=== PATIENT | female | born 1970 | race Caucasian/White ===

== ENCOUNTER 2022-08-16 11:35 | Emergency (ER) | payer SELFPAY ==
[2022-08-16 12:12] LABS: Urine Blood 2+ (Negative); Urine Glucose Negative (Negative); Urine Protein 2+ (Negative); Urine pH 5.5 (5.0-7.0)
--- NOTE | 2022-08-16 12:24 | EDPHYS ---
Physician Documentation [facility] Name: Philomena Em Age: 52 yrs Sex: Female : 1970 Arrival Date: 08/16/2022 Time: 11:37 Bed 17 Private MD: ED Physician Bethel Smith HPI: 08/16 11:59 This 52 yrs old Female presents to ER via Unassigned with complaints of Urinary en Problem, Pelvic Pain. 11:59 52-year-old female with no known medical history presents to ED with urinary hesitancy, en frequency, dysuria for 3 days. She reports subjective fever without chills or flank pain. No nausea, vomiting. No relief with [id number] Azo. [employer]: 12:01 LMP N/A - Irregular menses vg1 Historical: - Allergies: 12:01 PENICILLINS; vg1 - Home Meds: 12:01 None [Active]; vg1 - PMHx: 12:01 None; vg1 - PSHx: 12:01 Tubal Ligation; vg1 - Immunization history:: Client reports having NOT received the Covid vaccine. - Social history:: Smoking status: Patient reports the use of cigarette tobacco products, denies chronic smoking, but will smoke occasionally. ROS: 11:59 Constitutional: Subjective fever and chills : + Dysuria, hesitancy, frequency en without flank pain 11:59 All other systems are negative. en Exam: 11:59 Constitutional: This is a well developed, well nourished patient who is awake, alert, en and in no acute distress. 11:59 Cardiovascular: Exam negative for gallop, murmur, rub, Rate: normal, Heart sounds: normal. 11:59 Respiratory: Breath sounds: are clear throughout. 11:59 Abdomen/GI: Exam negative for acute changes, guarding, tenderness. 11:59 Back: CVA tenderness, is absent. Vital Signs: 11:58 BP 145 / 79; Pulse 87; Resp 16; Temp 99.4(O); Pulse Ox 100% on R/A; Weight 104.33 kg; vg1 Height 5 ft. 8 in. (172.72 cm); Pain 5/10; 11:58 Body Mass Index 34.97 (104.33 kg, 172.72 cm) vg1 MDM: 11:59 Differential diagnosis: UTI versus pyelonephritis. Data reviewed: vital signs, nurses en notes, lab test result(s), urinalysis. 12:05 Patient medically screened. en 12:25 Data reviewed: lab test result(s), urinalysis, +bacteruria and hematuria. en 08/16 11:59 Order name: Urine Dipstick-Ancillary (obtain specimen); Complete Time: 12:12 en 08/16 12:13 Order name: Urine Dipstick-Ancillary; Complete Time: 12:26 EDMS 08/16 12:23 Order name: Urine --Ancillary (enter results) eb Administered Medications: 12:20 Not Given (Physician Discretion): Omnicef (cefdinir) 300 mg PO once ll1 12:27 Drug: Bactrim (trimethoprim-sulfamethoxazole) (160 mg-800 mg (DS) 1 tablet Route: PO; ll1 12:34 Follow up: Response: No adverse reaction kr3 Disposition: 13:59 Co-signature as Attending Physician, Bethel Smith MD I agree with the assessment and kdr plan of care. Disposition Summary: 08/16/22 12:24 Discharge Ordered Location: Home en Problem: new en Symptoms: are unchanged en Condition: Stable en Diagnosis - UTI/ Urinary tract infection, site not specified en Followup: en - With: Lauro Kovacs MD - When: As needed - Reason: Discharge Instructions: - Discharge Summary Sheet en - Urinary Tract Infection, Adult en Forms: - Medication Reconciliation Form en - Thank You Letter en - Antibiotic Education en - Prescription Opioid Use en Prescriptions: - Bactrim DS 800-160 mg Oral Tablet - take 1 tablet by ORAL route every 12 hours for 10 days; 20 tablet; Refills: 0, en Product Selection Permitted Signatures: Dispatcher [employer] [facility] Bethel Smith MD MD kdr Mayda Pritchett RN RN vg1 Tu Davila RN RN ll1 Amelia De La Torre PA PA en Rocio Block RN kr3
--- NOTE | 2022-08-16 12:24 | ER ---
Nurse's Notes [facility] Name: Philomena Em Age: 52 yrs Sex: Female : 1970 Arrival Date: 08/16/2022 Time: 11:37 Bed 17 Private MD: Diagnosis: UTI/ Urinary tract infection, site not specified Presentation: 08/16 11:58 Chief complaint: Patient states: Pain before and after urination since Wednesday08/14/22 vg1 with urgency and burning. Denies blood in urine. Took 1 g of Tylenol about three hours ago for fever. Coronavirus screen: Vaccine status: Patient reports being unvaccinated. Client denies travel out of the [place] in the last 14 days. Ebola Screen: Patient negative for fever greater than or equal to 101.5 degrees Fahrenheit, and additional compatible Ebola Virus Disease symptoms Patient denies exposure to infectious person. Initial Sepsis Screen: Does the patient meet any 2 criteria? No. Patient's initial sepsis screen is negative. Does the patient have a suspected source of infection? No. Patient's initial sepsis screen is negative. Risk Assessment: Do you want to hurt yourself or someone else? Patient reports no desire to harm self or others. Onset of symptoms was August 14, 2022. 11:58 Method Of Arrival: Ambulatory vg1 11:58 Acuity: NESSA 3 vg1 Triage Assessment: 12:01 General: Appears uncomfortable, Behavior is calm, cooperative. Pain: Complains of pain vg1 in groin Pain currently is 5 out of 10 on a pain scale. Pain began 2-3 days ago. Neuro: Level of Consciousness is awake, alert, obeys commands, Oriented to person, place, time, situation. Cardiovascular: Patient's skin is warm and dry. : Reports burning with urination, urgency. [employer] RO[employer]ED HAIR: 12:01 LMP N/A - Irregular menses vg1 Historical: - Allergies: 12:01 PENICILLINS; vg1 - Home Meds: 12:01 None [Active]; vg1 - PMHx: 12:01 None; vg1 - PSHx: 12:01 Tubal Ligation; vg1 - Immunization history:: Client reports having NOT received the Covid vaccine. - Social history:: Smoking status: Patient reports the use of cigarette tobacco products, denies chronic smoking, but will smoke occasionally. Screenin:32 [facility] ED Fall Risk Assessment (Adult) History of falling in the last 3 months, kr3 including since admission No falls in past 3 months (0 pts) Confusion or Disorientation No (0 pts) Intoxicated or Sedated No (0 pts) Impaired Gait No (0 pts) Mobility Assist Device Used No (0 pt) Altered Elimination No (0 pt) Score/Fall Risk Level 0 - 2 = Low Risk Oriented to surroundings, Maintained a safe environment, Educated pt \T\ family on fall prevention, incl call for assistance when getting out of bed, Assessed \T\ reinforced patient's understanding of fall precautions, Hourly rounding (assess needs \T\ fall precautionary measures) done. Abuse screen: Denies threats or abuse. Nutritional screening: No deficits noted. Tuberculosis screening: No symptoms or risk factors identified. Vital Signs: 11:58 BP 145 / 79; Pulse 87; Resp 16; Temp 99.4(O); Pulse Ox 100% on R/A; Weight 104.33 kg; vg1 Height 5 ft. 8 in. (172.72 cm); Pain 5/10; 11:58 Body Mass Index 34.97 (104.33 kg, 172.72 cm) vg1 ED Course: 11:37 Patient arrived in ED. am2 11:38 Amelia De La Torre PA is PHCP. en 11:38 Bethel Smith MD is Attending Physician. en 12:01 Triage completed. vg1 12:01 Arm band placed on. vg1 12:05 Bed in low position. Call light in reach. Side rails up X 1. kr3 12:24 Lauro Kovacs MD is Referral Physician. en 12:33 No provider procedures requiring assistance completed. Patient did not have IV access kr3 during this emergency room visit. Administered Medications: 12:20 Not Given (Physician Discretion): Omnicef (cefdinir) 300 mg PO once ll1 12:27 Drug: Bactrim (trimethoprim-sulfamethoxazole) (160 mg-800 mg (DS) 1 tablet Route: PO; ll1 12:34 Follow up: Response: No adverse reaction kr3 Medication: 12:33 VIS not applicable for this client. kr3 Outcome: 12:24 Discharge ordered by . en 12:32 Patient left the ED. kr3 12:33 Discharged to home kr3 12:33 Condition: stable 12:33 Discharge instructions given to patient, Instructed on discharge instructions, follow up and referral plans. medication usage, Demonstrated understanding of instructions, follow-up care, medications, Prescriptions given X 1. Signatures: Crystal Hameed Victoria, RN RN vg1 Tu Davila RN RN ll1 Amelia De La Torre PA PA en Reid, Kelley RN RN kr3
[2022-08-16] MEDS ORDERED: SMZ./TMP. 800/160 MG TABLET ONE (12:29)
[2022-08-16 13:00] VITALS: BP 145/79; TEMP 99.4; O2SAT 100
== END 2022-08-16 12:32 | disposition home or self-care (01) ==
LOC: ER 11:35
DX: N39.0 Urinary tract infection, site not specified (principal)
CPT/HCPCS: 81003; 99283

== ENCOUNTER 2022-10-05 07:54 | Inpatient (IN) | payer SELFPAY ==
--- OUTSIDE RECORDS SUMMARY | 2022-10-05 07:59 | XMS REPORT | Continuity of Care Document ---
:1970 Author Organization [facility] t Address [address] [place] [address] Care Team Providers Name Role Phone Yeison Perdomo Attending Clinician Lisa Anne MD Attending Clinician LISA ANNE Attending Clinician Unavailable Payers Payer Name Policy Type Policy Number Effective Date Expiration Date S ource Problems Condition Condition Condition Status Onset Resolution Last Treating Co mments Source Name Details Category Date Date Treatment Clinician Date No known No known Disease Unive rs active active ity of problems problems [facility] Allergies, Adverse Reactions, Alerts Allergy Allergy Status Severity Reaction(s) Onset Inactive Treating Comm ents Source Name Type Date Date Clinician Penicill Propensi Active Swelling 2020-0 Univ ers ins ty to 8-14 ity of adverse 00:00: [place] reaction Medical s Branch PENICILL Drug Active Swelling 2020-0 Univer s INS Class 8-14 ity of 00:00: [address] Penicill DA Active MO 2020-0 [facility] ins Clear 00:00: [place] [facility] Penicill DA Active MO rash 2020-0 [facility] ins Clear 00:00: [place] 00 [facility] penicill DA Active U 2006-0 [facility] in G 06-24 Clear 00:00: [place] [facility] penicill DA Active U 2006-0 [facility] in G 06-24 Clear 00:00: [place] [facility] No Known DA Active U 2006- [facility] Contrast 06-23 Clear Allergie 00:00: [place] [facility] No Known DA Active U 2006- [facility] Food - Clear Allergie 00:00: [place] [facility] No Known DA Active U 2006- [facility] Other - Clear Allergie 00:00: [place] [facility] PENICILL DA Active U HIVES 2006- [facility] IN 06-23 Clear 00:00: [place] [facility] Social History Social Habit Start Date Stop Date Quantity Comments Source Sex Assigned At Uni versity [facility] Exposure to SARS-CoV-2 Not sure Un iversity [facility] (event) [facility] Smoking Status Start Date Stop Date Source Unknown if ever smoked Universit y [facility] Medications Ordered Filled Start Stop Current Ordering Indication Dosage Frequency Signature Comments Components Source Medication Medication Date Date Medication? Clinician (SIG) Name Name ondansetron 2019-06- No 4mg 4 mg, Slow Univers (ZOFRAN 0-25 10-25 IV Push, ity of (PF)) 18:45: 18:14 ONCE, 1 [place] injection 4 00 :00 dose, [facility] ical mg 04/07/20 Branch at 1345, GALLO morpHINE 2019-06- No 4mg 4 mg, Slow Un franklin injection 4 0-25 10-25 IV Push, ity of mg 18:45: 18:14 ONCE, 1 [place] 00 :00 dose, [facility] 04/07/20 Branch at 1345, STAT clindamycin 2019-06- No 900mg 900 mg, IV Univers in 5 % 0-25 10-25 Piggyback, ity of dextrose 18:45: 18:43 ONCE, 1 [place] (CLEOCIN) 00 :00 dose, [facility] Medic al 900 mg/50 04/07/20 Branch mL IV at 1345, piggyback 50 RTU 900 mg mL
Reas on for Anti-Infec tive: Documented Infection< br>Documen tk Infection Site: Skin / Soft Tissue
Duration of Therapy: 7 days
Re stricted use approved by: ED PROVIDER<b r>Indicati on for Clindamyci n use: abscess NaCl 0.9% 2019-06 2020- No 1000mL at 999 Uni vers (NS) bolus 0-25 10-25 mL/hr, ity of infusion 18:00: 19:17 1,000 mL, Reji as 1,000 mL 00 :00 IV Medical Infusion, Branch ONCE, 1 dose, 04/07/20 at 1300, GALLO mupirocin 2 2019-06 Yes [id number] Apply to Univers % ointment 0-25 [id number] area(s) 3 it y of 00:00: (three) [place] 00 times Medical daily. Branch traMADoL 50 2019-06 Yes [id number] 50mg Take 1 Univ ers mg tablet 0-25 tablet by ity o f 00:00: mouth [place] 00 every 6 Medical (six) Branch hours as needed for Pain (scale 7-10). Indication s: acute pain clindamycin 2019-06- No [id number] 300mg Take 1 Univers 300 mg 0-25 04-15 [id number] capsule by ity of capsule 00:00: 05:59 mouth 3 [place] 00 :00 (three) Medical times [place] daily for 7 days. clindamycin 2019-06- No [id number] 150mg Take 1 Univers 150 mg 0-25 04-15 [id number] capsule by ity of capsule 00:00: 05:59 mouth 3 [place] 00 :00 (three) Medical times [place] daily for 7 days. ondansetron 2019- No 4mg 4 mg, Slow Univers (ZOFRAN 01-26-15 IV Push, ity of (PF)) 06:30: 05:31 ONCE, 1 [place] injection 4 00 :00 dose, Sat Med ical mg 01/27/20 at Branch 0130, GALLO morpHINE 2019- No 4mg 4 mg, Slow Un franklin injection 4 01-26-15 IV Push, ity of mg 06:30: 05:31 ONCE, 1 [place] 00 :00 dose, Sat Medical 01/27/20 at Branch 0130, STAT iohexol 2019-2019- No 120mL 120 mL, Unive rs (OMNIPAQUE 01-26-15 Intravenou it y of 350 06:15: 06:09 s, ONCE, 1 [place] BULK-150 00 :00 dose, Sat Medica l mL) 01/27/20 at [place] injection 0115, 120 mL Routine maalox:diph 2020-0 2020- No 15mL 15 mL, Uni vers enhydrAMINE 8-15 08-15 Oral, ity of :lidocaine 04:15: 03:09 ONCE, 1 Reji as 2 % viscous 00 :00 dose, Fri Med ical 1:1:1 01/26/20 at [place] ([facility] [address], [facility]) Routine oral suspension 15 mL famotidine 2020-0 Yes [id number] 20mg Take 1 U nivers 20 mg 8-15 tablet by ity of tablet 00:00: mouth 2 [place] 00 (two) Medical times [place] daily. acetaminoph 2020-0 Yes [id number] 1{tbl} Take 1-2 Univers en-codeine 8-15 tablets by ity of 300-30 mg 00:00: mouth [place] tablet 00 every 6 Medical (six) Branch hours as needed for Pain (scale 1-3). Indication s: acute pain famotidine 2020-0 Yes [id number] 20mg Take 1 U nivers 20 mg 8-15 tablet by ity of tablet 00:00: mouth 2 [place] 00 (two) Medical times [place] daily. acetaminoph 2020-0 Yes [id number] 1{tbl} Take 1-2 Univers en-codeine 8-15 tablets by ity of 300-30 mg 00:00: mouth [place] tablet 00 every 6 Medical (six) Branch hours as needed for Pain (scale 1-3). Indication s: acute pain Vital Signs Vital Name Observation Time Observation Value Comments Source Systolic blood 2020-04-07 19:17:26 142 mm[Hg] [place] [facility] [place] [facility] Diastolic blood 2020-04-07 19:17:26 89 mm[Hg] [facility] 2020-04-07 19:17:26 78 /min [facility] Body temperature 2020-04-07 19:17:26 37 Patricia [facility] Respiratory rate 2020-04-07 19:17:26 18 /min [facility] Oxygen saturation in 2020-04-07 19:17:26 99 /min [facility] Arterial blood by [facility] Pulse oximetry Branch Body weight 2020-04-07 17:16:00 104.327 kg [facility] BMI 2020-04-07 17:16:00 34.97 kg/m2 [facility] Systolic blood 2020-01-27 06:54:00 146 mm[Hg] Univer sity of pressure [facility] Diastolic blood 2020-01-27 06:54:00 71 mm[Hg] [place] [facility] rs[facility] pressure [facility] Heart rate 2020-01-27 06:54:00 71 /min [facility] Respiratory rate 2020-01-27 06:54:00 18 /min [facility] Oxygen saturation in 2020-01-27 06:54:00 100 /min [facility] Arterial blood by [facility] Pulse oximetry [place] Body temperature 2020-01-27 02:20:00 36.78 Patricia [facility] Body height 2020-01-27 02:20:00 172.7 cm [facility] Body weight 2020-01-27 02:20:00 99.791 kg [facility] BMI 2020-01-27 02:20:00 33.45 kg/m2 [facility] Procedures Procedure Date / Time Performed Performing Clinician [facility] e HEPATIC FUNCTION 2020-04-07 18:05:00 Yeison Barajas [facility] PANEL ([id number]) [facility] (ALB,T.PRO,BILI T,BU/BC,ALT,AST,ALK PHOS) BASIC METABOLIC PANEL 2020-04-07 18:05:00 Yeison Barajas [facility] (NA, K, CL, CO2, Medical Branch GLUCOSE, BUN, CREATININE, CA) CBC WITH DIFF 2020-04-07 18:05:00 Yeison Barajas [facility] POCT TEST 2020-04-07 18:05:00 Yeison Barajas [facility] CT ANGIOGRAM CHEST 2020-01-27 06:33:18 Lisa Anne [facility] TROPONIN I 2020-01-27 05:33:00 Lisa Anne [facility] XR CHEST 1 VW 2020-01-27 03:24:59 Lisa Anne [facility] TEST, SERUM 2020-01-27 02:57:00 Lisa Anne [facility] TROPONIN I 2020-01-27 02:57:00 Lisa Anne [facility] COMP. METABOLIC PANEL 2020-01-27 02:57:00 Lisa Anne [facility] ([id number]) [facility] CBC WITH DIFF 2020-01-27 02:57:00 Lisa Anne [facility] D-DIMER 2020-01-27 02:57:00 Lisa Anne [facility] COVID-19 (ID NOW 2020-01-27 02:40:00 Lisa Anne [facility] RAPID TESTING) [facility] EKG-12 LEAD 2020-01-27 02:34:08 Lisa Anne [facility] Encounters Start End Encounter Admission Attending Care Care Encounter Source Date/Time Date/Time Type Type Clinicians Facility Department ID 2019-08-12 Inpatient HCACL VEDA [id number] [facility] 05:38:00 60 [facility] 2020-04-07 2020-04-07 Emergency Ib[place]le, TRAUMA [id number] Univers 12:18:00 15:49:00 Yeison F CENTER 350.1.13.10 [place] [id number] [address] 2020-04-07 2020-04-[address] [facility] ERT [id number] Univers 12:12:00 12:12:00 ity of [facility] 2020-01-26 2020-01-27 Emergency Anne, TRAUMA [id number] Univers 21:31:00 02:53:00 Lisa Craig [place] 350.1.13.10 [place] [id number] [address] 2020-01-26 2020-01-26 [facility] [id number] Univers 21:31:00 21:31:00 LISA [facility] Results Test Description Test Time Test Comments Results Result Comments Source Basic Metabolic Panel (NA, K, CL, CO2, GLUCOSE, BUN, 2020-03 18:59:00 CREATININE, CA) Test Item Value Reference Range Interpretation Comme nts NA (test code = 6335695924) 140 mmol/L 135-145 K (test code = 1097243931) 4.1 mmol/L 3.5-5 CL (test code = 0644138462) 101 mmol/L 98-108 CO2 TOTAL (test code = 31 mmol/L 23-31 3311234135) AGAP (test code = 4996927698) 2-16 BUN (test code = 5198495343) 10 mg/dL 7-23 GLUCOSE (test code = 5382033101) 98 mg/dL 70-110 CREATININE (test code = 0.58 mg/dL 0.5-1.04 6182327803) CALCIUM (test code = 7568961414) 9.1 mg/dL 8.6-10.6 eGFR Calculation (Non- mL/min/1.73m2 Italian) (test code = 1146949518) eGFR Calculation ( mL/min/1.73m2 Italian) (test code = 4387054024) YANELY (test code = YANELY) Association of Glomerular Filtration Rate (GFR) and Staging of Kidney Disease* + +--------- + ----+| GFR (mL/min/1.73 m2) ?| With Kidney Damage ?| ?Without Kidney Damage+ +--- + +| ?>90 ?| ?Stage one ?| ? Normal ?+ +-------- + -----+| ?60-89 ?| ?Stage two ?| ? Decreased GFR ? + +--------- + ----+| ?30-59 ?| ?Stage three ?| ? Stage three ? + +--------- + ----+| ?15-29 ?| ?Stage four ? | ? Stage four ?+ +-------- + -----+| ?<15 (or dialysis) ? ?| ?Stage five ? | ? Stage five ?+ +-------- + -----+ *Each stage assumes the associated GFR level has been in effect for at least three months. ?Stages 1 to 5, with or without kidney disease, indicate chronic kidney disease. Notes: Determination of stages one and two (with eGFR >59mL/min/1.73 m2) requires estimation of kidney damage for at least three months as defined by structural or functional abnormalities of the kidney, manifested by either:Pathological abnormalities or Markers of kidney damage (including abnormalities in the composition of the blood or urine or abnormalities in imaging tests). [facility] (ALB, T.PRO, BILI T, BU/BC, ALT, AST, ALK PHOS)2020-04-07 18:59:00 Test Item Value Reference Range Interpretation Comments TOTAL BILI (test code = 3104489497) 0.7 mg/dL 0.1-1.1 BILI UNCON (test code = 0470579402) 0.7 mg/dL 0.1-1.1 BILI CONJ (test code = 6761872643) 0.0 mg/dL 0-0.3 T PROTEIN (test code = 9977738229) 6.8 g/dL 6.3-8.2 ALBUMIN (test code = 5005301033) 3.9 g/dL 3.5-5 ALK PHOS (test code = 9428021280) 105 U/L 34-122 ALTv (test code = 1742-6) 97 U/L 5-35 H AST(SGOT) (test code = 7741223042) 42 U/L 13-40 H Lab Interpretation (test code = Abnormal 89179-2) [facility] HospitalCBC with [id number] 18:45:00 Test Item Value Reference Range Interpretation Comments WBC (test code = See_Comment [Automated 1432-2) message] The sy stem which generated this result transmitted reference range : 4.30 - 11.10 10*3/?L. The reference range was not used to interpret this result as normal/abnormal . RBC (test code = See_Comment [Automated 192-8) message] The sy stem which generated this result transmitted reference range : 3.93 - 5.25 10*6/?L. The reference range was not used to interpret this result as normal/abnormal . HGB (test code = 13.8 g/dL 11.6-15 718-7) HCT (test code = 42.4 % 35.7-45.2 4544-3) MCV (test code = 89.6 fL 80.6-95.5 787-2) MCH (test code = 29.2 pg 25.9-32.8 785-6) MCHC (test code = 32.5 g/dL 31.6-35.1 786-4) RDW-SD (test code = 44.0 fL 39-49.9 06822-3) RDW-CV (test code = 13.3 % 12-15.5 788-0) PLT (test code = See_Comment [Automated 777-3) message] The sy stem which generated this result transmitted reference range : 166 - 358 10*3/ ?L. The reference r mino was not used to interpret this result as normal/abnormal . MPV (test code = 10.2 fL 9.5-12.9 81047-7) NRBC/100 WBC (test See_Comment [Automat ed code = 0357201194) message] The system which generated this result transmitted reference range : 0.0 - 10.0 /100 WBCs. The refer ence range was not u sed to interpret th is result as normal/abnormal . NRBC x10^3 (test code <0.01 See_Comment [Auto mated = 0232643527) message] The s ystem which generated this result transmitted reference range : 10*3/?L. The reference range was not used to interpret this result as normal/abnormal . GRAN MAT (NEUT) % 73.6 % (test code = 770-8) IMM GRAN % (test code 0.30 % = 6133211072) LYMPH % (test code = 18.6 % 736-9) MONO % (test code = 5.1 % 5905-5) EOS % (test code = 2.1 % 713-8) BASO % (test code = 0.3 % 706-2) GRAN MAT x10^3(ANC) 7.29 10*3/uL 1.88-7.09 H (test code = 7637551155) IMM GRAN x10^3 (test 0.03 10*3/uL 0-0.06 code = 3306966864) LYMPH x10^3 (test code 1.84 10*3/uL 1.32-3.29 = 731-0) MONO x10^3 (test code 0.50 10*3/uL 0.33-0.92 = 742-7) EOS x10^3 (test code = 0.21 10*3/uL 0.03-0.39 711-2) BASO x10^3 (test code 0.03 10*3/uL 0.01-0.07 = 704-7) Lab Interpretation Abnormal (test code = 78561-3) [facility] HospitalPO[facility] [id number] 18:05:00 Test Item Value Reference Range Interpretation Comments POCT PREG (test code = 1605) negative POCT PREG LOT # (test code = 3575) [id number] POCT PREG TEST DATE (test 2021-09-11 code = 3576) Lab Interpretation (test code = Normal 07426-9) [facility] HospitalTROPONIN [id number] 06:09:00 Test Item Value Reference Range Interpretation Comments TROPONIN I (test 0.003 ng/mL See_Comment [Automated code = 8164400215) message] The system which generated this result transmitted reference range : <=0.034. The reference range was not used to interpret this result as normal/abnormal . YANELY (test code = Equal or Less than YANELY) 0.034 ng/ml---Normal ?Note: Cardiac troponin begins to rise 3-4 hours after the onset of ischemia. Repeat in 4-6 hours if the sample was drawn within 3-4 hours of the onset of the symptom and found normal. Between 0.035 and 0.120 ng/mL--- Borderline. Questionable myocardial injury or necrosis ? ?Note: Serial measurement may be necessary to confirm or exclude the diagnosis of myocardial injury or necrosis; Clinical correlation (symptoms, EKGs, imaging studies, and others) required; Repeat in 4-6 hours if clinically indicated. ? Equal or Higher than 0.121 ng/mL---Abnormal. Myocardial Injury or Necrosis Likely ? Biotin has been reported to cause a negative bias, interpret results relative to patient's use of biotin. ? Lab Interpretation Normal (test code = 03500-9) [facility] HospitalXR CHEST 1 [id number] 06:00:20Impression: No acute cardiopulmonary abnormality. Preliminary Report Dictated by Resident: Lazaro Ovalle MD., have reviewed this study and agree with the abovereport.XR CHEST 1 VW History: chest pain Comparison: None available Findings: The lungs are clear. No focal consolidation is present. No pleural effusionor pneumothorax is identified. The heart is normal in size. The osseous structures are unremarkable. [facility], Radiant Results Inft User - 01/27/2020 1:01 AM CDTXR CHEST 1 VWHistory: chest pain Comparison: None availableFindings:The lungs are clear. No focal consolidation is present. No pleural effusionor pneumothorax is identified. The heart is normal in size. The osseous structures are unremarkable.IMPRESSIONImpression:No acute cardiopulmonary abnormality.Preliminary Report Dictated by Resident: Lazaro Saldana MD., have reviewed this study and agree with the abovereport.[facility] HospitalCOVID-19 (ID NOW RAPID TESTING)2020-01-27 03:34:00 Test Item Value Reference Range Interpretation Comments SARS-CoV-2 Rapid ID NOW Not Detected Not Detected (test code = 93066-4) YANELY (test code = YANELY) ID NOW COVID-19 Assay is an isothermal nucleic acid amplification test intended for the qualitative detection of nucleic acid from SARS-CoV-2 viral RNA in nasopharyngeal ([employer]) specimens. It is used under Emergency Use Authorization (EUA) by FDA. The limit of detection (LOD) of the assay is 125 Genome Equivalents/mL. A positive result is indicative of the presence of SARS-CoV-2 RNA. ?Clinical correlation with patient history and other diagnostic information is necessary to determine patient infection status. A negative (Not Detected) result does not preclude SARS-CoV-2 infection. In patients with clinical symptoms and other tests that are consistent with SARS-CoV-2 infection, negative results should be treated as presumptive negative and a new specimen should be tested with alternative PCR molecular test. Invalid: Please collect a new specimen for repeat patient testing if clinically indicated. Lab Interpretation Normal (test code = 32733-0) [facility] HospitalTROPONIN [id number] 03:34:00 Test Item Value Reference Range Interpretation Comments TROPONIN I (test 0.001 ng/mL See_Comment [Automated code = 4402245252) message] The system which generated this result transmitted reference range : <=0.034. The reference range was not used to interpret this result as normal/abnormal . YANELY (test code = Equal or Less than YANELY) 0.034 ng/ml---Normal ?Note: Cardiac troponin begins to rise 3-4 hours after the onset of ischemia. Repeat in 4-6 hours if the sample was drawn within 3-4 hours of the onset of the symptom and found normal. Between 0.035 and 0.120 ng/mL--- Borderline. Questionable myocardial injury or necrosis ? ?Note: Serial measurement may be necessary to confirm or exclude the diagnosis of myocardial injury or necrosis; Clinical correlation (symptoms, EKGs, imaging studies, and others) required; Repeat in 4-6 hours if clinically indicated. ? Equal or Higher than 0.121 ng/mL---Abnormal. Myocardial Injury or Necrosis Likely ? Biotin has been reported to cause a negative bias, interpret results relative to patient's use of biotin. ? Lab Interpretation Normal (test code = 02049-2) [facility]. METABOLIC PANEL (59682)2020-01-27 03:23:00 Test Item Value Reference Range Interpretation Comments NA (test code = 137 mmol/L 135-145 3978749005) K (test code = 3.7 mmol/L 3.5-5 0838227815) CL (test code = 103 mmol/L 98-108 6658613260) CO2 TOTAL (test code = 27 mmol/L 23-31 9652850071) AGAP (test code = 2-16 3707831770) BUN (test code = 19 mg/dL 7-23 1082421097) GLUCOSE (test code = 107 mg/dL 70-110 5665216059) CREATININE (test code 0.77 mg/dL 0.5-1.04 = 6578538724) TOTAL BILI (test code 0.4 mg/dL 0.1-1.1 = 2932881121) CALCIUM (test code = 9.3 mg/dL 8.6-10.6 8355123571) T PROTEIN (test code = 6.4 g/dL 6.3-8.2 0284682015) ALBUMIN (test code = 3.9 g/dL 3.5-5 3852462775) ALK PHOS (test code = 81 U/L 34-122 9417354069) ALTv (test code = 16 U/L 5-35 1742-6) AST(SGOT) (test code = 19 U/L 13-40 6546526765) eGFR Calculation mL/min/1.73m2 (Non-) (test code = 9040994535) eGFR Calculation mL/min/1.73m2 () (test code = 4321247862) YANELY (test code = YANELY) Association of Glomerular Filtration Rate (GFR) and Staging of Kidney Disease* + -+ + ---+| GFR (mL/min/1.73 m2) ?| With Kidney Damage ?| ?Without Kidney Damage+ -------+ ------+ ---------+| ?>90 ?| ?Stage one ?| ? Normal ?+ --+ -+ ----+| ?60-89 ?| ?Stage two ?| ? Decreased GFR ? + -+ + ---+| ?30-59 ?| ?Stage three ?| ? Stage three ? + -+ + ---+| ?15-29 ?| ?Stage four ? | ? Stage four ?+ --+ -+ ----+| ?<15 (or dialysis) ? ?| ?Stage five ? | ? Stage five ?+ --+ -+ ----+ *Each stage assumes the associated GFR level has been in effect for at least three months. ?Stages 1 to 5, with or without kidney disease, indicate chronic kidney disease. Notes: Determination of stages one and two (with eGFR >59mL/min/1.73 m2) requires estimation of kidney damage for at least three months as defined by structural or functional abnormalities of the kidney, manifested by either:Pathological abnormalities or Markers of kidney damage (including abnormalities in the composition of the blood or urine or abnormalities in imaging tests). [facility] BranchPREGNANCY TEST, [id number] 03:17:00 Test Item Value Reference Range Interpretation Comments PREG SERUM (test code Negative = 6854837140) YANELY (test code = YANELY) Less than 10 IU/L. ?If low titer or ectopic is suspected, resubmit specimen in 48-72 hours. [facility] HospitalD-[id number] 03:16:00 Test Item Value Reference Interpretation Comments Range D-DIMER (test code = See_Comment [Autom ated 9857540915) message] The system which generated this result transmitted reference range : <0.50 ?g/mL (FEU). The reference range was not used to interpret this result as normal/abnormal . YANELY (test code = This test may be YANELY) used in conjunction with a clinical pretest probability (PTP) assessment model to exclude venous thromboembolism (VTE) in patients suspected of deep venous thrombosis (DVT) and pulmonary embolism (PE) A D-Dimer value less than 0.50 ?g/ml (FEU) has a negative predicative value of 96 to 100% (95% CI)and 97 to 100% (95% CI) as an aid in the diagnosis of deep vein thrombosis (DVT) and pulmonary embolism when there is low or moderate pretest probability of PE or DVT. D-Dimer values are expressed in initial fibrinogen equivalent units (FEU)" The assay results should be used with other information, including the clinical context, in forming a diagnosis. Lab Interpretation Normal (test code = 44568-4) [facility] WITH [id number] 03:09:00 Test Item Value Reference Range Interpretation Comments WBC (test code = See_Comment [Automated message] 6690-2) The system M-Factor generated this result transmitted ref erence range: 4.30 - 1 1.10 10*3/?L. The re ference range was not u sed to interpret this result as normal/abnor mal. RBC (test code = See_Comment [Automated message] 789-8) The system M-Factor generated this result transmitted ref erence range: 3.93 - 5 .25 10*6/?L. The re ference range was not u sed to interpret this result as normal/abnor mal. HGB (test code = 12.7 g/dL 11.6-15 718-7) HCT (test code = 38.9 % 35.7-45.2 4544-3) MCV (test code = 89.0 fL 80.6-95.5 787-2) MCH (test code = 29.1 pg 25.9-32.8 785-6) MCHC (test code = 32.6 g/dL 31.6-35.1 786-4) RDW-SD (test code 43.8 fL 39-49.9 = 14905-4) RDW-CV (test code 13.4 % 12-15.5 = 788-0) PLT (test code = See_Comment [Automated message] 777-3) The system whic h generated this result transmitted ref erence range: 166 - 35 8 10*3/?L. The re ference range was not u sed to interpret this result as normal/abnor mal. MPV (test code = 10.4 fL 9.5-12.9 46295-6) NRBC/100 WBC (test See_Comment [Automat ed message] code = 4187921001) The syste m which generated this result transmitted ref erence range: 0.0 - 10 .0 /100 WBCs. The refer ence range was not u sed to interpret this result as normal/abnor mal. NRBC x10^3 (test <0.01 See_Comment [Automated message] code = 5839985996) The syste m which generated this result transmitted ref erence range: 10*3/?L. The reference range was not used to interpr et this result as normal/abnormal . GRAN MAT (NEUT) % 54.5 % (test code = 770-8) IMM GRAN % (test 0.30 % code = 1825344030) LYMPH % (test code 33.8 % = 736-9) MONO % (test code 6.4 % = 5905-5) EOS % (test code = 4.3 % 713-8) BASO % (test code 0.7 % = 706-2) GRAN MAT 4.94 10*3/uL 1.88-7.09 x10^3(ANC) (test code = 8692331880) IMM GRAN x10^3 0.03 10*3/uL 0-0.06 (test code = 8345488355) LYMPH x10^3 (test 3.06 10*3/uL 1.32-3.29 code = 731-0) MONO x10^3 (test 0.58 10*3/uL 0.33-0.92 code = 742-7) EOS x10^3 (test 0.39 10*3/uL 0.03-0.39 code = 711-2) BASO x10^3 (test 0.06 10*3/uL 0.01-0.07 code = 704-7) [id number] 09:58:00 Test Item Value Reference Range Interpretation Comments TROPONIN-I < 0.015 ng/mL 0.000-0.045 N Negative: <= 0 .045 Positive: (test code = >= 0.046 Correl ation with TROPI) serial results, other cardiac markers andclinical findings is nec essary to determine the clinicalsignifi cance of this result. Results using different metho dologies should not be c omparedto one another as jack titative results may sarah y by method. UA RFLX MICR CULT IF [id number] 08:13:00 Test Item Value Reference Range Interpretation Comments UA COLOR (test code = COLU) STRAW YEL/STRAW UA APPEARANCE (test code = APPU) CLEAR CLEAR UA GLUCOSE DIPSTICK (test code = NEGATIVE NEGATIVE DGLUU) UA BILIRUBIN DIPSTICK (test code NEGATIVE NEGATIVE = BILU) UA KETONE DIPSTICK (test code = NEGATIVE NEGATIVE KETU) UA SPECIFIC GRAVITY (test code = 1.006 1.005-1.030 N SGU) UA BLOOD DIPSTICK (test code = NEGATIVE NEGATIVE FLOR) UA PH DIPSTICK (test code = JAIDEN) 7.0 5.0-7.0 N UA PROTEIN DIPSTICK (test code = NEGATIVE NEGATIVE PROU) UA UROBILINIOGEN DIPSTICK (test 0.2 mg/dL 0.2-1.0 code = URO) UA NITRITE DIPSTICK (test code = NEGATIVE NEGATIVE MANNY) UA LEUKOCYTE ESTERASE DIPSTICK NEGATIVE NEGATIVE (test code = LEUU) UA WBC (test code = WBCU) 0-3 WBC/HPF 0-3 UA RBC (test code = RBCU) 0-3 RBC/HPF 0-3 UA WBC NO REFLEX (test code = 0-3 WBC/HPF 0-3 WBCUCL) UA BACTERIA (test code = BACU) TRACE /HPF NONE SEEN UA SQUAMOUS CELLS (test code = 0-5 /HPF NONE SEEN SQU) Indication for culture: Suprapubic PainSpecimen Description: CLEAN CATCHBASIC METABOLIC [id number] 07:32:00 Test Item Value Reference Range Interpretation Comments SODIUM (test code = 140 mEq/L 134-147 N NA) POTASSIUM (test code = 4.8 mEq/L 3.4-5.0 N SPECI MEN MODERATELY K) HEMOLYZED.Resul ts known to be adv ersely affected by hem olysis are: Potassium Magnesium LDH Phosphorus CHLORIDE (test code = 107 mEq/L 100-108 N CL) CARBON DIOXIDE (test 30 mEq/L 21-33 N code = CO2) ANION GAP (test code = 8 0-20 N GAP) GLUCOSE (test code = 91 mg/dL 70-110 N GLU) BLOOD UREA NITROGEN 14 mg/dL 7-18 N (test code = BUN) GLOMERULAR FILTRATION 89.3 95-105 L Units of measure = RATE (test code = GFR) ml/mi n/1.73 m2 CREATININE (test code 0.7 mg/dL 0.6-1.3 N = CREAT) CALCIUM (test code = 8.6 mg/dL 8.0-10.5 N CA) HEPATIC FUNCTION [id number] 07:32:00 Test Item Value Reference Range Interpretation Comments TOTAL PROTEIN (test code = PROT) 7.1 g/dL 6.4-8.2 N ALBUMIN (test code = ALB) 3.50 g/dL 3.4-5.0 N BILIRUBIN TOTAL (test code = 0.6 MG/DL <1.5 N BILT) BILIRUBIN DIRECT (test code = < 0.10 MG/DL 0.0-0.30 N BILD) BILIRUBIN INDIRECT (test code = 0.50 MG/DL BILIND) SGOT/AST (test code = AST) 29 IUnit/L 15-37 N SGPT/ALT (test code = ALT) 25 IUnit/L 15-65 N ALKALINE PHOSPHATASE TOTAL (test 102 IUnit/L 20-125 N code = ALKP) [id number] 07:32:00 Test Item Value Reference Range Interpretation Comments LIPASE (test code = LIP) 163 IUnit/L 73-393 N [id number] 07:32:00 Test Item Value Reference Range Interpretation Comments MAGNESIUM (test code = MAG) 2.40 mg/dL 1.8-2.4 N HCG SERUM [id number] 07:32:00 Test Item Value Reference Range Interpretation Comments HCG SERUM QUAL (test code = SERUM NEGATIVE NEGATIVE HCGQL) TSH REFLEX TO [id number] 07:32:00 Test Item Value Reference Range Interpretation Comments TSH REFLEX TO FT4 (test code = 2.36 IU/mL 0.42-5.47 N TSHREFLEX) B-TYPE NATRIURETIC [id number] 07:27:00 Test Item Value Reference Range Interpretation Comments B-TYPE NATRIURETIC PEPTIDE (test < 2.0 PG/ML 0-100 N code = BNP) BASIC METABOLIC [id number] 07:18:00 Test Item Value Reference Range Interpretation Comments SODIUM (test code = NA) mEq/L 134-147 POTASSIUM (test code = K) mEq/L 3.4-5.0 CHLORIDE (test code = CL) mEq/L 100-108 CARBON DIOXIDE (test code = CO2) mEq/L 21-33 ANION GAP (test code = GAP) 0-20 GLUCOSE (test code = GLU) mg/dL 70-110 BLOOD UREA NITROGEN (test code = BUN) mg/dL 7-18 GLOMERULAR FILTRATION RATE (test code 95-105 = GFR) CREATININE (test code = CREAT) mg/dL 0.6-1.3 CALCIUM (test code = CA) mg/dL 8.0-10.5 HEPATIC FUNCTION [id number] 07:18:00 Test Item Value Reference Range Interpretation Comments TOTAL PROTEIN (test code = PROT) g/dL 6.4-8.2 ALBUMIN (test code = ALB) g/dL 3.4-5.0 BILIRUBIN TOTAL (test code = BILT) MG/DL <1.5 BILIRUBIN DIRECT (test code = BILD) MG/DL 0.0-0.30 SGOT/AST (test code = AST) IUnit/L 15-37 SGPT/ALT (test code = ALT) IUnit/L 15-65 ALKALINE PHOSPHATASE TOTAL (test IUnit/L 20-125 code = ALKP) [id number] 07:18:00 Test Item Value Reference Range Interpretation Comments LIPASE (test code = LIP) IUnit/L 73-393 [id number] 07:18:00 Test Item Value Reference Range Interpretation Comments MAGNESIUM (test code = MAG) mg/dL 1.8-2.4 HCG SERUM [id number] 07:18:00 Test Item Value Reference Range Interpretation Comments HCG SERUM QUAL (test code = SERUM NEGATIVE NEGATIVE HCGQL) TSH REFLEX TO [id number] 07:18:00 Test Item Value Reference Range Interpretation Comments TSH REFLEX TO FT4 (test code = IU/mL 0.42-5.47 TSHREFLEX) TROPONIN-I [id number] 07:07:00 Test Item Value Reference Range Interpretation Comments TROPONIN-I RAPID 0.01 ng/mL 0.00-0.08 N Performed b y 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 09An elevated tropon in value alone is not morris fficient todiagnose a my ocardial infarction. Rat her, the patient sclinic al presentation (h istory, physical exam) and ECGshould be us ed in conjunction wit h troponin in thediagnosti c evaluation of s uspected myocardial infa rction. Aserial samplin g protocol is recommended to facilitate the identification of temporal changes in trop onin levels characteristic of VA. [id number] 06:59:00 Test Item Value Reference Range Interpretation Comments D-DIMER (test 275 ng/mlFEU <=500 N THROMBOSIS AND /OR PULMONARY code = EMBOLISM AND TH E CLINICAL DDIMER) CUT- OFF VALUE FOR EXCLUSION (500 ng/mL FEU) OF THESE CONDITIONSIS VA LIDATED BY THE MANUFACTURE R OF THE METHOD. A NEGAT MILES D-DIMER RESULT WHEN COM BINED WITH A CLINICALASSESSM ENT OF LOW PRETEST PROBABI LITY HAS BEEN SHOWN TO HAVEA HIGH NEGATIVE PREDICTIVE VALU E OF DVT OR PE. D-DIMER FEMI UES >500 ng/mL FEU ARE N OT DIAGNOSTIC FOR DVT, PEor D IC WITHOUT OTHER CONFIRMAT ORY TESTS AND APPROPRIATECLIN ICAL EUALUATIONS. - XR CHEST 2 [id number] 06:52:00 FAX: King Griffin DO [phone] [place]: St: REG Name: [facility] [place] : 1970 Age/S: 49/F [address] [place] [address] Unit #: [id number] Loc: [address] [address] Phys: King Coombs DO Acct: [id number] Dis Date: Status: REG ER PHONE #: [phone] Exam Date: 08/12/2019 0650 FAX #: [phone] Reason: SOB EXAMS: CPT CODE: [id number] XR CHEST 2 V 92341 EXAM: CR, XR chest 2 views: 08/12/2019, 0641 hours HISTORY: SOB TECHNIQUE: Frontal and lateral chest radiographs are submitted. COMPARISON: None available. FINDINGS: Trachea is in midline. Heart is normal in size. Pulmonary vascularity is not congested. No airspace consolidation, pneumothorax or pleural effusion is seen. Osseous str uctures are unremarkable. IMPRESSION: No acute cardiopulmonary disease seen. SL:[JSYED-H] at 0652 Reported and signed by: Regis Polanco M.D.CC: King Coombs DO Technologist: RT Laury(Cedric) Trnscrd Date/Time/By: 08/12/2019 (0652) : By: [email or web address] Orig Print D/T: S: 08/12/2019 (7578) PAGE 1 Signed ReportCBC W/AUTO [id number] 06:49:00 Test Item Value Reference Range Interpretation Comments WHITE BLOOD CELL (test code = 7.95 x10 3/uL 4.5-11.0 N WBC) RED BLOOD CELL (test code = 4.56 x10 6/uL 3.54-5.02 N RBC) HEMOGLOBIN (test code = HGB) 13.5 g/dL 11.0-15.0 N HEMATOCRIT (test code = HCT) 41.4 % 33.0-45.0 N MEAN CELL VOLUME (test code = 90.8 fL 81.0-99.0 N MCV) MEAN CELL HGB (test code = MCH) 29.6 pg 27.0-33.0 N MEAN CELL HGB CONCETRATION 32.6 g/dL 33.0-37.0 L (test code = MCHC) RED CELL DISTRIBUTION WIDTH CV 14.0 % 11.5-14.5 N (test code = RDW) RED CELL DISTRIBUTION WIDTH SD 47.1 fL 37.0-54.0 N (test code = RDW-SD) PLATELET COUNT (test code = 226 x10 3/uL 150-400 N PLT) MEAN PLATELET VOLUME (test code 11.4 fL 7.0-9.0 H = MPV) NEUTROPHIL % (test code = NT%) 53.6 % 56.0-77.0 L IMMATURE GRANULOCYTE % (test 0.4 % 0.0-2.0 N code = IG%) LYMPHOCYTE % (test code = LY%) 35.5 % 14.0-32.0 H MONOCYTE % (test code = MO%) 6.5 % 4.8-9.0 N EOSINOPHIL % (test code = EO%) 3.4 % 0.3-3.7 N BASOPHIL % (test code = BA%) 0.6 % 0.0-2.0 N NUCLEATED RBC % (test code = 0.0 % 0-0 N NRBC%) NEUTROPHIL # (test code = NT#) 4.26 x10 3/uL 2.0-7.6 N IMMATURE GRANULOCYTE # (test 0.03 x10 3/uL 0.00-0.03 N code = IG#) LYMPHOCYTE # (test code = LY#) 2.82 x10 3/uL 1.0-3.8 N MONOCYTE # (test code = MO#) 0.52 x10 3/uL 0.1-0.8 N EOSINOPHIL # (test code = EO#) 0.27 x10 3/uL 0.0-0.2 H BASOPHIL # (test code = BA#) 0.05 x10 3/uL 0.0-0.2 N NUCLEATED RBC # (test code = 0.00 x10 3/uL 0.0-0.1 N NRBC#) MANUAL DIFF REQUIRED (test code NO = MDIFF)
[2022-10-05 08:36] LABS: Absolute Lymphocytes (CBC) 0.8 K/uL (0.7-4.9); Hematocrit 44.3 % (36.0-45.0); MCV 88.8 fL (80-100); MPV 8.6 fL (7.6-11.3); RBC Red Blood Cell Count 4.99 M/uL (3.86-4.86)
[2022-10-05] MEDS ORDERED: MECLIZINE HCL 12.5 MG TAB ONE (08:38)
[2022-10-05] MEDS ORDERED: ONDANSETRON 4 MG/2 ML VIAL ONE (08:38)
[2022-10-05] MEDS ORDERED: NA CHLORIDE 0.9% 1,000 ML ONE (08:38)
--- NOTE | 2022-10-05 08:42 | RAD REPORT ---
EXAM DESCRIPTION: CT - Head Brain Wo Cont - 10/05/2022 8:36 am CLINICAL HISTORY: DIZZINESS Headache, drowsiness COMPARISON: No comparisons TECHNIQUE: All CT scans are performed using dose optimization technique as appropriate and may inclu de automated exposure control or mA/KV adjustment according to patient size. FINDINGS: No intracranial hemorrhage, hydrocephalus or extra-axial fluid collection.No areas of brai n edema or evidence of midline shift. The paranasal sinuses and mastoids are clear. The calvarium is intact. IMPRESSION: No acute intracranial abnormality.
--- NOTE | 2022-10-05 08:52 | RAD REPORT ---
EXAM DESCRIPTION: RAD - Chest Single View - 10/05/2022 8:44 am CLINICAL HISTORY: dizziness Chest pain. COMPARISON: No comparisons FINDINGS: Portable technique limits examination quality. The lungs are grossly clear. The heart is normal in size. No displaced fractures. IMPRESSION: No acute intrathoracic process suspected.
[2022-10-05 09:19] LABS: Protime INR 0.96
[2022-10-05 10:30] LABS: Platelet Estimate ADEQ; White Blood Cell Scan OK (OK)
[2022-10-05 10:31] LABS: Blood Morphology Comment NOT SEEN (NOT SEEN)
--- NOTE | 2022-10-05 11:12 | RAD REPORT ---
EXAM DESCRIPTION: MRI - Brain Wo Cont - 10/05/2022 10:55 am CLINICAL HISTORY: DIZZINESS COMPARISON: Head Brain Wo Cont dated 10/05/2022 TECHNIQUE: Multi-sequence, multiplanar MR imaging of the brain was performed without contrast. FINDINGS: No intracranial hemorrhage, hydrocephalus or extra-axial fluid collections. No edema or sh ift of midline structures. No findings to suspect brain mass. There is abnormal signal seen in the le ft inferior cerebellar hemisphere in the inferolateral medulla. This is diffusion restricted and most compatible with acute CVA. Midline structures are normally formed. Mastoid air cells and paranasal sinuses are clear. IMPRESSION: Acute nonhemorrhagic CVA involving probable left ICA territory. Infarct size is approxim ately 3.5 x 4.0 cm involving the left inferior cerebellar hemisphere.
[2022-10-05 12:49] LABS: Potassium 4.2 mEq/L (3.5-5.1); Troponin High Sensitivity 3.4 pg/mL (<58.9)
--- NOTE | 2022-10-05 13:27 | ER ---
Nurse's Notes [facility] Name: Philomena Em Age: 52 yrs Sex: Female : 1970 Arrival Date: 10/05/2022 Time: 07:54 Bed 18 Private MD: Diagnosis: Cerebral infarction, unspecified;Dizziness and giddiness Presentation: 10/05 08:13 Acuity: NESSA 3 iw 08:13 Chief complaint: Patient states: started having sydnie ear pain and dizziness and this iw morning she vomited today and yesterday. Coronavirus screen: At this time, the client does not indicate any symptoms associated with coronavirus-19. Ebola Screen: Patient negative for fever greater than or equal to 101.5 degrees Fahrenheit, and additional compatible Ebola Virus Disease symptoms Patient denies exposure to infectious person. Patient denies travel to an Ebola-affected area in the 21 days before illness onset. No symptoms or risks identified at this time. Initial Sepsis Screen: Does the patient meet any 2 criteria? No. Patient's initial sepsis screen is negative. Does the patient have a suspected source of infection? No. Patient's initial sepsis screen is negative. Risk Assessment: Do you want to hurt yourself or someone else? Patient reports no desire to harm self or others. Onset of symptoms was October 04, 2022. 08:13 Method Of Arrival: Wheelchair iw Triage Assessment: 09:03 General: Appears in no apparent distress. comfortable, Behavior is calm. Pain: Denies db pain. GI: Reports nausea. 09:04 Neuro: Reports dizziness. 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 - Social history:: Smoking status: Patient reports the use of cigarette tobacco products, smokes one-half pack cigarettes per day. - Family history:: not pertinent. - Hospitalizations: : No recent hospitalization is reported. Screenin:49 [facility] ED Fall Risk Assessment (Adult) History of falling in the last 3 months, db including since admission No falls in past 3 months (0 pts) Confusion or Disorientation No (0 pts) Intoxicated or Sedated No (0 pts) Impaired Gait No (0 pts) Mobility Assist Device Used No (0 pt) Altered Elimination No (0 pt) Score/Fall Risk Level 0 - 2 = Low Risk Oriented to surroundings, Maintained a safe environment. Abuse screen: Denies threats or abuse. Denies injuries from another. Nutritional screening: No deficits noted. Tuberculosis screening: No symptoms or risk factors identified. 10:00 Shae Swallow Protocol Brief Cognitive Screen What is your name? Normal, Where are you db right now? Normal, What year is it? Normal. Oral Mechanism Examination Facial Symmetry: Normal, Motion: Normal, Lip Closure: Normal, Oral Mechanism Result: Normal. 3 oz Water Swallow Challenge: Pt able to drink all water without stopping, coughing, choking or throat clearing: Yes Result: PASS. Assessment: 08:05 Reassessment: Patient appears in no apparent distress at this time. Patient and/or db family updated on plan of care and expected duration. Pain level reassessed. Patient is alert, oriented x 3, equal unlabored respirations, skin warm/dry/pink. complains of dizziness and nausea. General: Appears in no apparent distress. comfortable, Behavior is calm, cooperative. Pain: Denies pain. Neuro: Level of Consciousness is awake, alert, obeys commands, Oriented to person, place, time, situation, Reports dizziness. Respiratory: No deficits noted. Airway is patent Respiratory effort is even, unlabored, Respiratory pattern is regular, symmetrical. GI: Abdomen is flat, non-distended. 09:16 Reassessment: Patient appears in no apparent distress at this time. Patient and/or db family updated on plan of care and expected duration. Pain level reassessed. Patient is alert, oriented x 3, equal unlabored respirations, skin warm/dry/pink. 09:55 Reassessment: Patient appears in no apparent distress at this time. patient to CT. db 13:38 Reassessment: patient reports vomiting and feeling hot. Notified provider. new order db for phenergan received. See Medication administration. 14:00 Reassessment: Patient appears in no apparent distress at this time. Patient and/or db family updated on plan of care and expected duration. Pain level reassessed. Patient is alert, oriented x 3, equal unlabored respirations, skin warm/dry/pink. Reassessment: Patient states feeling better. Patient states symptoms have improved. Pain: Denies pain. 16:29 Reassessment: Patient appears in no apparent distress at this time. Patient and/or db family updated on plan of care and expected duration. Pain level reassessed. Report given to RENÉE Bajwa. 17:03 Reassessment: Patient appears in no apparent distress at this time. Patient and/or db family updated on plan of care and expected duration. Pain level reassessed. Patient is alert, oriented x 3, equal unlabored respirations, skin warm/dry/pink. Vital Signs: 08:13 BP 152 / 75; Pulse 59; Resp 16; Temp 97.6; Pulse Ox 97% on R/A; iw 09:00 BP 145 / 69; Pulse 70; Resp 20; Pulse Ox 98% on R/A; db 09:30 BP 146 / 71; Pulse 61; Resp 18; Pulse Ox 96% on R/A; Weight 104.33 kg; Height 5 ft. 8 db in. ; 10:30 BP 141 / 77; Pulse 64; Resp 16; Pulse Ox 97% on R/A; db 11:30 BP 147 / 76; Pulse 76; Resp 16 S; Pulse Ox 96% ; db 12:00 BP 157 / 74; Pulse 76; Resp 18; Pulse Ox 96% on R/A; db 13:00 BP 139 / 71; Pulse 73; Resp 16; Pulse Ox 96% on R/A; db 15:00 BP 146 / 73; Pulse 79; Resp 18; Pulse Ox 97% on R/A; db 16:00 BP 111 / 80; Pulse 70; Resp 18; Pulse Ox 98% on R/A; db 16:30 BP 115 / 62; Pulse 80; Resp 16; Pulse Ox 96% on R/A; db 09:30 Body Mass Index 34.97 (104.33 kg, 172.72 cm) db Vitals: 09:00 Cardiac Rhythm Assessment Regular Sinus rhythm. db ED Course: 07:57 Patient arrived in ED. mr 08:09 Akhil Khan MD is Attending Physician. rn 08:13 Triage completed. iw 08:15 Inserted saline lock: 20 gauge in right antecubital area, using aseptic technique. db 08:24 Amaris Olmedo, RENÉE is Primary Nurse. db 08:37 CT Head Brain wo Cont In Process Unspecified. EDMS 08:43 Chest Single View XRAY In Process Unspecified. EDMS 09:04 No provider procedures requiring assistance completed. db 09:15 Patient has correct armband on for positive identification. Bed in low position. Call db light in reach. Side rails up X 1. Client placed on continuous cardiac and pulse oximetry monitoring. NIBP monitoring applied. 10:56 Brain Wo Cont MRI In Process Unspecified. EDMS 13:26 Leandro Chanel MD is Hospitalizing Provider. rn 16:32 Patient admitted, IV remains in place. db 16:36 Arm band placed on Patient placed in an exam room. db Administered Medications: 08:48 Drug: Meclizine PO 50 mg Route: PO; db 16:37 Follow up: Response: No adverse reaction db 08:48 Drug: NS 0.9% IV 1000 ml Route: IV; Rate: 1000 ml; Site: right antecubital; db 11:00 Follow up: Response: No adverse reaction; IV Status: Completed infusion; IV Intake: db 1000ml 08:48 Drug: Ondansetron IVP 4 mg Route: IVP; Site: right antecubital; db 16:37 Follow up: Response: No adverse reaction db 13:40 Drug: Promethazine IVP 12.5 mg Route: IVP; Site: right antecubital; db 16:37 Follow up: Response: No adverse reaction db 16:37 Follow up: Response: No adverse reaction db 15:10 Drug: Aspirin PO Chewable Tablet 324 mg Route: PO; db 16:37 Follow up: Response: No adverse reaction db 15:10 Drug: foLIC Acid IVPB 1 mg Route: IVPB; Site: left antecubital; db 15:23 Follow up: Response: No adverse reaction; IV Status: Completed infusion db Medication: 16:32 VIS not applicable for this client. db Intake: 11:00 IV: 1000ml; Total: 1000ml. db Outcome: 13:26 Decision to Hospitalize by Provider. rn 16:32 Admitted to ER Hold. Please see [facility] for further documentation. db 16:32 Condition: stable 16:32 Instructed on the need for admit. 17:12 Patient left the ED. db Signatures: Dispatcher [facility], Angela mr Jose C, Rafaela, RN RN iw Khan, Akhil, MD MD rn Olmedo, Amaris, RN RN db
--- NOTE | 2022-10-05 13:27 | EDPHYS ---
Physician Documentation [facility] Name: Philomena Em Age: 52 yrs Sex: Female : 1970 Arrival Date: 10/05/2022 Time: 07:54 Bed 18 Private MD: ED Physician Akhil Khan HPI: 10/05 13:05 This 52 yrs old Female presents to ER via Unassigned with complaints of Nausea, rn Dizziness. 13:06 The patient presents with dizziness, vertigo. Onset: The symptoms/episode rn began/occurred yesterday. Modifying factors: The symptoms are alleviated by nothing, the symptoms are aggravated by movement of head, standing up, changing position. Severity of symptoms: At their worst the symptoms were moderate in the emergency department the symptoms are unchanged. The patient has not experienced similar symptoms in the past. The patient has not recently seen a physician. Pt reports yesterday afternoon began with vomiting/dizziness/trouble walking. No trauma. No fever. Reports mild left ear pain. . 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 - Social history:: Smoking status: Patient reports the use of cigarette tobacco products, smokes one-half pack cigarettes per day. - Family history:: not pertinent. - Hospitalizations: : No recent hospitalization is reported. ROS: 13:06 Constitutional: Negative for fever, chills, and weight loss, Cardiovascular: Negative rn for chest pain, palpitations, and edema, Respiratory: Negative for shortness of breath, cough, wheezing, and pleuritic chest pain, Abdomen/GI: + nausea/vomiting Back: Negative for injury and pain, MS/Extremity: Negative for injury and deformity, Skin: Negative for injury, rash, and discoloration, Neuro: + dizziness Exam: 09:09 ECG was reviewed by the Attending Physician. rn 13:06 Constitutional: This is a well developed, well nourished patient who is awake, alert, rn and in no acute distress. Head/Face: Normocephalic, atraumatic. Eyes: Pupils equal round and reactive to light, extra-ocular motions intact. + nystagmus present Cardiovascular: Regular rate and rhythm. No pulse deficits. Respiratory: No increased work of breathing, no retractions or nasal flaring. Abdomen/GI: Soft, non-tender Skin: Warm, dry MS/ Extremity: Pulses equal, no cyanosis. Neuro: Awake and alert, GCS 15, oriented to person, place, time, and situation. Cranial nerves II-XII grossly intact. Motor strength 5/5 in all extremities. Sensory grossly intact. Vital Signs: 08:13 BP 152 / 75; Pulse 59; Resp 16; Temp 97.6; Pulse Ox 97% on R/A; iw 09:00 BP 145 / 69; Pulse 70; Resp 20; Pulse Ox 98% on R/A; db 09:30 BP 146 / 71; Pulse 61; Resp 18; Pulse Ox 96% on R/A; Weight 104.33 kg; Height 5 ft. 8 db in. ; 10:30 BP 141 / 77; Pulse 64; Resp 16; Pulse Ox 97% on R/A; db 11:30 BP 147 / 76; Pulse 76; Resp 16 S; Pulse Ox 96% ; db 12:00 BP 157 / 74; Pulse 76; Resp 18; Pulse Ox 96% on R/A; db 13:00 BP 139 / 71; Pulse 73; Resp 16; Pulse Ox 96% on R/A; db 15:00 BP 146 / 73; Pulse 79; Resp 18; Pulse Ox 97% on R/A; db 16:00 BP 111 / 80; Pulse 70; Resp 18; Pulse Ox 98% on R/A; db 16:30 BP 115 / 62; Pulse 80; Resp 16; Pulse Ox 96% on R/A; db 09:30 Body Mass Index 34.97 (104.33 kg, 172.72 cm) db MDM: 08:09 Patient medically screened. rn 13:24 Differential diagnosis: cardiac arrhythmia, CVA, generalized weakness, hypovolemia, rn idiopathic dizziness, TIA, vertigo. Data reviewed: vital signs, nurses notes, lab test result(s), EKG, radiologic studies, CT scan, MRI, and as a result, I will admit patient. Consideration of Admission/Observation Patient was admitted/placed on observation. Escalation of care including admission/observation considered. Counseling: I had a detailed discussion with the patient and/or guardian regarding: the historical points, exam findings, and any diagnostic results supporting the discharge/admit diagnosis, lab results, radiology results, the need for further work-up and treatment in the hospital. Response to treatment: the patient's symptoms have mildly improved after treatment, and as a result, I will admit patient. Special discussion:. 10/05 08:18 Order name: Basic Metabolic Panel; Complete Time: 12:51 rn 10/05 08:18 Order name: CBC with Diff; Complete Time: 10:51 10/05 08:18 Order name: Protime (+inr); Complete Time: 10:51 10/05 08:18 Order name: Ptt, Activated; Complete Time: 10:51 10/05 08:18 Order name: Troponin High Sensitivity; Complete Time: 12:51 10/05 08:18 Order name: Urinalysis w/ reflexes 10/05 08:39 Order name: Glucose, Ancillary Testing; Complete Time: 09:04 [facility] 10/05 10:31 Order name: CBC Smear Scan; Complete Time: 10:51 [facility] 10/05 08:18 Order name: CT Head Brain wo Cont; Complete Time: 09:04 10/05 08:18 Order name: Chest Single View XRAY; Complete Time: 09:04 10/05 09:04 Order name: Brain Wo Cont MRI; Complete Time: 12:51 10/05 15:15 Order name: Echo with Doppler [facility] 10/05 08:18 Order name: EKG; Complete Time: 08:19 10/05 15:15 Order name: Physical Therapy Consult [facility] 10/05 08:18 Order name: Cardiac monitoring; Complete Time: 08:24 10/05 08:18 Order name: EKG - Nurse/Tech; Complete Time: 08:24 10/05 08:18 Order name: IV Saline Lock; Complete Time: 08:24 10/05 08:18 Order name: Labs collected and sent; Complete Time: :10/05 08:18 Order name: O2 Per Protocol; Complete Time: 08:24 10/05 08:18 Order name: O2 Sat Monitoring; Complete Time: 08:10/05 08:18 Order name: Glucose Level; Complete Time: :10/05 08:46 Order name: Labs - recollect needed: please recollect green and blue top; Complete em1 Time: 09:03 10/05 09:23 Order name: Labs - recollect needed: please recollect green top; Complete Time: 13:03 em1 EC:09 Rate is 61 beats/min. Rhythm is regular. QRS Benson is Normal. MI interval is normal. QRS rn interval is normal. QT interval is normal. No Q waves. T waves are Normal. No ST changes noted. Clinical impression: NSR w/ Non-specific ST/T Changes. Interpreted by me. Reviewed by me. Administered Medications: 08:48 Drug: Meclizine PO 50 mg Route: PO; db 16:37 Follow up: Response: No adverse reaction db 08:48 Drug: NS 0.9% IV 1000 ml Route: IV; Rate: 1000 ml; Site: right antecubital; db 11:00 Follow up: Response: No adverse reaction; IV Status: Completed infusion; IV Intake: db 1000ml 08:48 Drug: Ondansetron IVP 4 mg Route: IVP; Site: right antecubital; db 16:37 Follow up: Response: No adverse reaction db 13:40 Drug: Promethazine IVP 12.5 mg Route: IVP; Site: right antecubital; db 16:37 Follow up: Response: No adverse reaction db 16:37 Follow up: Response: No adverse reaction db 15:10 Drug: Aspirin PO Chewable Tablet 324 mg Route: PO; db 16:37 Follow up: Response: No adverse reaction db 15:10 Drug: foLIC Acid IVPB 1 mg Route: IVPB; Site: left antecubital; db 15:23 Follow up: Response: No adverse reaction; IV Status: Completed infusion db Disposition Summary: 10/05/22 13:26 Hospitalization Ordered Hospitalization Status: Inpatient Admission rn Provider: Leandro Chanel rn Location: Telemetry/MedSurg (Inpatient) rn Condition: Stable rn Problem: new rn Symptoms: have improved rn Bed/Room Type: Standard rn Room Assignment: 228(10/05/22 15:42) dw Diagnosis - Cerebral infarction, unspecified rn - Dizziness and giddiness rn Forms: - Medication Reconciliation Form rn - SBAR form rn Signatures: Dispatcher [employer] Kenzie Matthew RN RN Akhil Borden MD MD rn Martinez, Eric em1 Amaris Olmedo RN RN db Corrections: (The following items were deleted from the chart) 10:32 08:40 Manual Differential ordered. EDMS EDMS 13:25 13:06 Constitutional: This is a well developed, well nourished patient who is awake, rn alert, and in no acute distress. Head/Face: Normocephalic, atraumatic. Eyes: Pupils equal round and reactive to light, extra-ocular motions intact. + nystagmus present rn 15:42 13:26 rn dw
[2022-10-05] MEDS ORDERED: PROMETHAZINE INJ 25 MG/ML AMP ONE (13:44)
[2022-10-05] MEDS ORDERED: ASPIRIN 81 MG CHEWABLE TABLET ONE (15:07)
[2022-10-05] MEDS ORDERED: FOLIC ACID 5 MG/ML VIAL ONE (15:09)
[2022-10-05] MEDS ORDERED: NA CHLORIDE 0.9% 0 ML ONE (15:10)
[2022-10-05] MEDS ORDERED: ONDANSETRON 4 MG/2 ML VIAL IV PRN (17:25)
--- NOTE | 2022-10-05 17:26 | P.HP ---
Certification for Inpatient Patient admitted to: Inpatient With expected LOS: >2 Midnights Patient will require the following post-hospital care: None Practitioner: I am a practitioner with admitting privileges, knowledge of patient current condition, hospital course, and medical plan of care. Services: Services provided to patient in accordance with Admission requirements found in Title 42 Section 412.3 of the Code of Federal Regulations Patient History Date of Service: 10/05/22 Reason for admission: Dizziness, Vertigo History of Present Illness: Patient is a 52 female with no known past medical history who presents with complaint of dizziness and vertigo onset yesterday. Patient reported associated signs and symptoms of headache, diaphoresis, generalized weakness, nausea, vomiting, difficulty walking and generalized malaise. Patient denies any other signs or symptoms. Symptoms are aggravated with head movement, position change or standing and relieved by nothing. Patient decided to present to the hospital due to worsening symptoms. Allergies penicillin G Allergy (Verified 10/05/22 17:36) Itching/Hives/Rash Home Medications: NK [No Home Meds] 10/05/22 - Past Medical/Surgical History -: Obesity -: Tubal Ligation - Family History Father History Unknown: Yes Mother History Unknown: Yes - Social History Smoking Status: Former smoker Alcohol use: Yes CD- Drugs: No Caffeine use: No Place of Residence: Home Review of Systems General: Sweats, Weakness, Malaise Eyes: Unremarkable ENT: Unremarkable Respiratory: Unremarkable Cardiovascular: Unremarkable Gastrointestinal: Nausea, Vomiting Genitourinary: Unremarkable Musculoskeletal: Other Neurological: Other (Dizziness, Vertigo, SEXTON) Physical Examination - Physical Exam General: Alert, In no apparent distress, Oriented x3, Cooperative HEENT: Atraumatic, PERRLA, Mucous membr. moist/pink, EOMI, Sclerae nonicteric Neck: Supple, 2+ carotid pulse no bruit, No LAD, Without JVD or thyroid abnormality Respiratory: Clear to auscultation bilaterally, Normal air movement Cardiovascular: No edema, Regular rate/rhythm, Normal S1 S2 Capillary refill: <2 Seconds Gastrointestinal: Normal bowel sounds, Soft and benign, No tenderness Musculoskeletal: No clubbing, No swelling, No tenderness Integumentary: No rashes, No breakdown, No significant lesion Neurological: Normal speech, Normal strength at 5/5 x4 extr, Normal tone, Normal affect Lymphatics: No axilla or inguinal lymphadenopathy - Studies Laboratory Data (last 24 hrs) 10/05/22 12:20: Sodium 138, Potassium 4.2, BUN 16, Creatinine 0.72, Glucose 123 H 10/05/22 08:55: PT 10.6, INR 0.96, APTT 17.3 L 10/05/22 08:20: WBC 12.80 H, Hgb 14.5, Hct 44.3, Plt Count 254 Assessment and Plan - Plan --CVA. MRI brain indicates " Acute nonhemorrhagic CVA involving probable left ICA territory. Infarct size is approximately 3.5 x 4.0 cm involving the left inferior cerebellar hemisphere". Continue aspirin. Patient placed on statin. Echocardiogram pending to assess cardiac structures and function. Neurologist consulted. We will await further recommendations from neurologist. --Dizziness. Likely secondary to CVA. Continue meclizine prn. Further mgt per Neurologist -- Leukocytosis. Likely reactive. We will continue to monitor WBC levels. --Class II obesity. Patient counseled on weight reduction, diet and excise therapy --Elevated blood pressure without the diagnosis of hypertension We will allow for permissive hypertension. --Headache. Tylenol as needed. .--Nausea and vomiting. Antiemetics on board. Continue supportive care. -- Headache. Tylenol as needed. --DVT prophylaxis with Lovenox subQ. Discharge Plan: Home Plan to discharge in: Greater than 2 days - Advance Directives Does patient have a Living Will: No Does patient have a Durable POA for Healthcare: No - Code Status/Comfort Care Code Status Assessed: Yes Physician Review: Patient Assessed, Agree with Above Assessment and Plan Critical Care: No
[2022-10-05 17:30] VITALS: BMI 34.9
[2022-10-05] MEDS: ENOXAPARIN 40 MG/0.4 ML SQ SCH (17:43)
[2022-10-05 18:31] LABS: Magnesium 2.4 mg/dL (1.6-2.4); Phosphorus 3.5 mg/dL (2.5-4.9); Thyroid Stimulating Hormone 1.79 uIU/mL (0.358-3.740)
--- NOTE | 2022-10-05 19:25 | P.PN ---
Date of Service: 10/06/22 Subjective: Still having some dizziness; improving headache persists complains of pain in right ear prior to the stroke, currently mild discomfort ROS: 10 point ROS as noted above, otherwise negative Physical Exam: Gen: Alert, NAD, AOx3 HEENT: normal conjunctiva, sclera anicteric CV: regular rate & rhythm, no edema Pulm: non-labored respirations on room air, clear bilaterally Abd: soft, non-tender, non-distended Neuro: normal speech, normal affect, moves all extremities, str 5/5, intact sensation, bilateral upper/lower extremity with no difficulty with [id number]-[id number] testing, kjuh-[id number]-[id number] testing slight dizziness/headache provoked when looking at upper/outer quadrants of vision. slight nystagmus of right eye vitals reviewed Problem List: L acute CVA - inferior cerebellar hemisphere" Dizzinessm, Nausea and vomiting secondary to CVA Headache Class II obesity CVA MRI brain indicates " Acute nonhemorrhagic CVA involving probable left ICA territory. Infarct size is approximately 3.5 x 4.0 cm involving the left inferior cerebellar hemisphere". Continue aspirin and statin Echocardiogram pending Neurologist consulted Leukocytosis likely reactive. monitor WBC levels Elevated blood pressure without the diagnosis of hypertension. will allow for permissive hypertension in acute post-op period further monitor check MRA to eval vasculature Dizziness, nausea/vomiting secondary to CVA; improving Continue meclizine/antiemetics prn Headache Tylenol as needed Class II obesity Patient counseled on weight reduction, diet and excise therapy VTE: Lovenox subQ Code: Full Dispo: Home 1-2 days MRA ordered awaiting echo, PT eval, neuro consult
[2022-10-05] MEDS: ATORVASTATIN 40 MG TAB PO SCH (21:46)
[2022-10-05] MEDS ORDERED: MECLIZINE HCL 12.5 MG TAB PO PRN (21:54)
[2022-10-06 04:05] LABS: Absolute Lymphocytes (CBC) 2.3 K/uL (0.7-4.9); Hematocrit 38.5 % (36.0-45.0); Lymphocytes % 17.7 % (15.3-44.8); MCV 88.2 fL (80-100); MPV 8.4 fL (7.6-11.3); RBC Red Blood Cell Count 4.37 M/uL (3.86-4.86)
[2022-10-06 04:25] LABS: Potassium 3.4 mEq/L (3.5-5.1)
[2022-10-06] MEDS: ASPIRIN 81 MG CHEWABLE TABLET PO SCH (07:59)
[2022-10-06] MEDS: ENOXAPARIN 40 MG/0.4 ML SQ SCH (07:59)
[2022-10-06] MEDS: ACETAMINOPHEN 325 MG TABLET PO PRN ×2 (08:46→21:35)
[2022-10-06] MEDS ORDERED: POTASSIUM CL SA 10 MEQ TAB PO ONE (09:00)
--- NOTE | 2022-10-06 12:02 | RAD REPORT ---
EXAM DESCRIPTION: MRI - MRA Head Wo Cont - 10/06/2022 11:17 am CLINICAL HISTORY: L CVA COMPARISON: Brain Wo Cont dated 10/05/2022; MRA Neck W/Wo Cont dated 10/06/2022 FINDINGS: 3D noncontrast [id number] MR angiography of the [place] was performed. No evidence of large vessel occlusion. No aneurysm, flow-limiting stenosis or vascular malformation i s seen. Forward flow seen in codominant vertebral arteries. The visualized dural venous sinuses appear patent. IMPRESSION: No significant flow abnormality of the [place] is identified.
--- NOTE | 2022-10-06 12:07 | RAD REPORT ---
EXAM DESCRIPTION: MRI - MRA Neck W/Wo Cont - 10/06/2022 11:17 am CLINICAL HISTORY: L CVA COMPARISON: No comparisons TECHNIQUE: Contrast-enhanced 3D MR angiography of the neck vessels was performed, following intrave nous administration of MultiHance. Multiplanar reformats and MIP reconstructions were generated and r eviewed. FINDINGS: No evidence of dissection. Common carotid arteries are patent. Focal mild luminal narrowing with smooth luminal contour along the most proximal left ICA. Short segm ent of mild caliber attenuation along the proximal right ICA, starting approximately 1.1 centimeter d istal to the origin. Internal carotid arteries are otherwise patent to the skullbase. Vertebral arteries are patent. IMPRESSION: Proximal bilateral ICA mild luminal narrowing as above, may relate to atherosclerotic ch anges. No evidence of obstruction or flow-limiting stenosis of the cervical carotid or vertebral [place].
--- NOTE | 2022-10-06 12:43 | RAD REPORT ---
EXAM DESCRIPTION: US - CP - 10/06/2022 11:01 am CLINICAL HISTORY: CVA COMPARISON: MRA Neck W/Wo Cont dated 10/06/2022 TECHNIQUE: Real-time sonographic grayscale, color duplex, and spectral wave Doppler evaluation of [place] th carotid systems was performed. FINDINGS: Normal high resistance waveforms are noted in both external carotid arteries. The common c arotid arteries and internal carotid arteries show normal low resistance waveforms. Minimal noncalcified plaque formation at the bifurcations, more pronounced on the left. Peak systolic velocity less than 125 cm/ sec bilaterally. ICA/CCA peak systolic ratios less than 2.0 bilaterally. Antegrade flow seen in both vertebral arteries. IMPRESSION: Minimal atherosclerotic changes noted at the bulbs. Less than 50% ICA stenosis bilaterally. Evaluation of carotid artery stenosis, if any, is reported based on consensus recommendations of the Society of Radiologists in Ultrasound (Gamaliel et al., Radiology, 2003)
--- NOTE | 2022-10-06 19:31 | CON ---
Reason For Consultation: Consultation called because of stroke. History Of Present Illness: Ms. Em is a 52-year-old patient with no significant past medical his tory who comes to [facility] with sudden onset of dizziness, vertigo, nausea, and vomiting, but she came more than 24 hours after onset of those symptoms. She said the symptoms began suddenly with a headache. She thought she ate some bad food. There was nausea, vomiting, could not stand and ambulate because of the tendency to fall, but she eventually got to [facility] the day afte r onset. At Hospital head CT scan done on 10/05/2022 around 8:36 a.m. showed no acute ischemic or he morrhagic change. However, brain MRI done at 9:04 a.m. on 10/05/2022 identified an acute nonhemorrha gic stroke involving the left inferior cerebellar hemisphere measuring 3.5 x 4 cm consistent with a p osterior circulation stroke and the patient's symptoms. She did receive hydration and aspirin 81 mg along with Lipitor and Lovenox. Since her hospitalization, she notes significant improvement in her symptoms in terms of less nausea, no vomiting. She still feels unsteady if she stands. She is able to ambulate to the bathroom, did not fall, but has not yet worked with Physical Therapy. She is actu ally obese. Past Medical History: As noted, is not significant. Allergies: PENICILLIN. Medications: No home medications. Past Surgical History: Tubal ligation. Family History: Noncontributory. Social History: Smoked in the past. Does use alcohol regularly. No IV drug use. Review of Systems: She notes some fatigue, weakness. Nausea and vomiting as noted and tendency to fall and ambulating. Otherwise, no genitourinary issues. No dermatological issues. No shortness of breath. No chest po unding or palpitations. No dermatological issues. No issues involving her musculoskeletal system. Physical Examination: Vital Signs: Blood pressure 171/79, pulse 83, respiratory rate 16, temperature 98.6, and oxygen satu ration 96% on room air. Weight 230 pounds, height 5 feet 8 inches, BMI 35. General: Ms. Em is lying in her bed. Her is at the bedside. HEENT: She appears normocephalic, atraumatic. Sclerae anicteric. Oropharynx is pink and moist. Neck: Supple. Chest: Clear. Heart: Regular. Extremities: No clubbing, cyanosis, or edema. Neurological: She does have some mild dysmetria of on left sided [id number] and with left sided [id number]-ih-[id number]. She has a wide-based gait with a tendency to drift to the left as she ambulates. Othe rwise in terms of cranial nerves, she has full lopez to confrontation. Pupils are round and reactiv e to light and accommodation. Extraocular moves are intact. Facial sensation is intact to light guadalupe ch, temperature, pinprick bilaterally and tongue and palate are in midline. On motor examination, mich garcia has full strength in upper and lower extremities and coordination as noted. Some dysmetria in the upper and lower extremity on the left side, intact on the right side. Reflexes symmetric and 2+ in u pper and lower extremities. Sensation intact to upper and lower extremities. Gait as noted, wide-ba sed tendency to drift to the left when ambulating. Laboratory Studies: Complete blood count with differential shows slightly elevated white blood cell count of 13.0, normal hemoglobin of 12.6, and platelets 225. INR 0.96. Chemistries prior to hydrati on with sodium 138, potassium 4.2, chloride 107, carbon dioxide 28, BUN 16, creatinine 0.72, glucose ranged 123 to 145. Hemoglobin A1c 5.3. Calcium 8.8. Phosphorus 3.5. Magnesium 2.4. Triglycerides 101, cholesterol 155, LDL cholesterol 84, HDL 51. TSH 1.79, free T4 0.89. Assessment: Ms. Em is a 52-year-old patient with left hemispheric stroke involving the posterior circulation and marginally the cerebellum and outflow tracts to the brainstem, which is accounting f or her symptoms as described, which is mainly left-sided incoordination with dysmetria and some nause a and vomiting, which are improving. She was not on aspirin or any antiplatelet medication. Risk fa ctors include obesity and hypertension. Her LDL cholesterol is slightly elevated at 84. Plan: 1.She should be evaluated by Physical and Occupational Therapy along with Speech Therapy to determin e what level of therapy she requires. At this point, she may require a very aggressive therapy acute ly to help her improve as rapidly as possible and that may be inpatient rehabilitation. 2.Aspirin 81 mg and Plavix 75 mg daily. 3.Folic acid 1 mg daily. 4.Lipitor 40 mg at bedtime. 5.Blood work for stroke in the young. 6.So far carotid artery studies done showed no significant stenosis. The patient's brain MRA is prasanna wing stenosis. An echocardiogram may be completed to help rule out a PFO, bubble study may be requir ed. 7.After discharge, she should follow up in Dr. Goodson's office within the month. MASHA/JUDY Voice ID: [id number] Report ID: [id number]
[2022-10-06] MEDS: ATORVASTATIN 40 MG TAB PO SCH (21:36)
[2022-10-06 22:10] LABS: Specific Gravity 1.018 (1.005-1.030); Urine Bacteria 20-50 /HPF (<20); Urine Bilirubin NEGATIVE (Negative); Urine Blood Negative (Negative); Urine Clarity Clear (Clear); Urine Color Light-Yellow (Yellow); Urine Glucose NEGATIVE (Negative); Urine Mucus Slight /HPF (None Seen); Urine Protein NEGATIVE (Negative); Urine RBC <5 /HPF (None Seen); Urine Urobilinogen Normal (Normal)
[2022-10-07] MEDS: ACETAMINOPHEN 325 MG TABLET PO PRN (04:01)
[2022-10-07 04:09] LABS: Absolute Lymphocytes (CBC) 3.2 K/uL (0.7-4.9); Hematocrit 41.5 % (36.0-45.0); Lymphocytes % 34.6 % (15.3-44.8); MCV 88.5 fL (80-100); MPV 8.4 fL (7.6-11.3); RBC Red Blood Cell Count 4.69 M/uL (3.86-4.86)
[2022-10-07 04:30] LABS: Albumin 3.4 g/dL (3.4-5.0); Bilirubin Total 0.5 mg/dL (0.2-1.0); Magnesium 2.3 mg/dL (1.6-2.4); Potassium 3.7 mEq/L (3.5-5.1)
--- NOTE | 2022-10-07 04:58 | EKG ---
Test Date: 2022-10-05 Test Time: 08:29:30 Employment And Claims Aide: MIREYA MEASUREMENT RESULTS: Intervals: Rate: 61 NM: 188 QRSD: 94 QT: 468 QTc: 471 [place]: P: 56 NM: 188 QRS: 79 T: 121 INTERPRETIVE STATEMENTS: Normal sinus rhythm with sinus arrhythmia Nonspecific T wave abnormality Prolonged QT Abnormal ECG No previous ECG available for comparison Electronically Signed On 10-07-22 04:52:55 CDT by Sp Mann
--- NOTE | 2022-10-07 07:16 | P.PN ---
Date of Service: 10/07/22 Subjective: feeling slightly better today headaches persists; relieved with medication slight dizziness when walking; improving ROS: 10 point ROS as noted above, otherwise negative Physical Exam: Gen: Alert, NAD, AOx3 HEENT: normal conjunctiva, sclera anicteric CV: regular rate & rhythm, no edema Pulm: non-labored respirations on room air, clear bilaterally Abd: soft, non-tender, non-distended Neuro: normal speech, normal affect, moves all extremities, str 5/5, intact sensation, bilateral upper/lower extremity with no difficulty with [id number]-[id number] testing, gdot-zv-lcee testing slight dizziness/headache provoked when looking at upper/outer quadrants of vision. slight nystagmus of right eye vitals reviewed Problem List: L acute CVA - inferior cerebellar hemisphere" Dizzinessm, Nausea and vomiting secondary to CVA Headache Class II obesity CVA MRI brain 10/05: "Acute nonhemorrhagic CVA involving probable left ICA territory. Infarct size is approximately 3.5 x 4.0 cm involving the left inferior cerebe llar hemisphere" Continue aspirin and statin Echocardiogram pending Neurologist consulted Leukocytosis likely reactive. monitor WBC levels Elevated blood pressure without the diagnosis of hypertension. will allow for permissive hypertension in acute post-op period further monitor neck MRA 10/06: Proximal bilateral ICA mild luminal narrowing; No evidence of obstruction or stenosis Dizziness, nausea/vomiting secondary to CVA; improving Continue meclizine/antiemetics prn Headache Tylenol as needed Class II obesity Patient counseled on weight reduction, diet and excise therapy VTE: Lovenox subQ Code: Full Dispo: Home 1-2 days MRA ordered awaiting echo, PT eval, neuro consult
[2022-10-07] MEDS: ASPIRIN 81 MG CHEWABLE TABLET PO SCH (08:05)
[2022-10-07] MEDS ORDERED: POTASSIUM CL SA 10 MEQ TAB PO ONE (09:00)
[2022-10-07] MEDS ORDERED: FOLIC ACID 1 MG TABLET PO SCH (09:00)
[2022-10-07] MEDS ORDERED: CLOPIDOGREL 75 MG TABLET PO SCH (09:00)
[2022-10-07 09:05] VITALS: O2SAT 96
--- NOTE | 2022-10-07 12:34 | ECHO ---
HEIGHT: 5 ft 8 in WEIGHT: 230 lb 0.132 oz DATE OF STUDY: 10/07/[address]: Anderson Huang 2-DIMENSIONAL: YES M.MODE: YES DOPPLER: YES COLOR FLOW: YES TDS: NO PORTABLE: YES DEFINITY: NO BUBBLE STUDY: NO DIAGNOSIS: CEREBRAL VASCULAR ACCIDENT CARDIAC HISTORY: CATHERIZATION: NO SURGERY: NO PROSTHETIC VALVE: NO PACEMAKER: NO MEASUREMENTS (cm) DIASTOLIC (NORMALS) SYSTOLIC (NORMALS) IVSd 1.0 (0.6-1.2) LA Diam 3.2 (1.9-4.0) LVEF 50% LVIDd 5.0 (3.5-5.7) LVIDs 3.7 (2.0-3.5) %FS 26% LVPWd 1.0 (0.6-1.2) Ao Diam 2.9 (2.0-3.7) 2 DIMENSIONAL ASSESSMENT: RIGHT ATRIUM: NORMAL LEFT ATRIUM: NORMAL RIGHT VENTRICLE: NORMAL LEFT VENTRICLE: NORMAL TRICUSPID VALVE: NORMAL MITRAL VALVE: NORMAL PULMONIC VALVE: NORMAL AORTIC VALVE: NORMAL PERICARDIAL EFFUSION: NONE AORTIC ROOT: NORMAL LEFT VENTRICULAR WALL MOTION: NORMAL. DOPPLER/COLOR FLOW: MILD TRICUPSID REGURGITATION. COMMENTS: 1. MILD TRICUSPID REGURGITATION. 2. NO WALL MOTION ABNORMALITY 3. NORMAL LEFT VENTRICULAR SITE AND FUNCTION 4. NO VEGEATATION 5. NO THROMBUS TECHNOLOGIST: SANJAY REILLY
--- NOTE | 2022-10-07 14:16 | P.DS ---
Admission Date: 10/05/22 Discharge Date: 10/07/22 Disposition: ROUTINE DISCHARGE Reason for Admission: Dizziness, Vertigo Consultations: Neurology - Dr. Goodson Brief History of Present Illness: 52yo F, PMH: n/a Patient presented to the emergency department with complaint of dizziness and vertigo onset yesterday. Patient reported associated signs and symptoms of headache, diaphoresis, generalized weakness, nausea, vomiting, difficulty walking and generalized malaise. Patient denies any other signs or symptoms. Symptoms are aggravated with head movement, position change or standing and relieved by nothing. Patient decided to present to the hospital due to worsening symptoms. Hospital Course: Problem List: L acute CVA - inferior cerebellar hemisphere" Dizzinessm, Nausea and vomiting secondary to CVA Headache Class II obesity Patient presented to ED with dizziness and unsteady gait. She was found to have a left cerebellar stroke on MRI. Neurology was consulted. She was evaluated by physical therapy. CT head, MRA head/neck, carotid ultrasound, and echocardiogram were all unremarkable. She had improvement of her symptoms, but did still persist with some dizziness and unsteadiness of her gait. She did report feeling comfortable ambulating enough to safely go home. Her blood pressure was noted to be mildly elevated and improved to 140 systolic. Discussed allowing for some permissive hypertension immediately after stroke. She is to monitor blood pressure at home and follow-up with her primary care physician. If blood pressure remains elevated or increases, will eventually need to be started on medication. Dr. Goodson evaluated the patient, recommended aspirin, Plavix, folic acid, statin Discussed tobacco cessation. Follow-up PCP within 1 week Neurology in 1 month Physical Exam: Gen: Alert, NAD, AOx3 HEENT: normal conjunctiva, sclera anicteric CV: regular rate & rhythm, no edema Pulm: non-labored respirations on room air, clear bilaterally Abd: soft, non-tender, non-distended Neuro: normal speech, normal affect, moves all extremities, str 5/5, slight nystagmus of right eye slight dizziness/headache provoked when looking at upper/outer quadrants of vision. Vital Signs/Physical Exam: Temp Pulse Resp BP Pulse Ox 98.4 F 72 18 143/79 H 96 10/07/22 08:00 10/07/22 08:00 10/07/22 08:00 10/07/22 08:00 10/07/22 08:00 Laboratory Data at Discharge: WBC 9.30 thou/uL (4.3-10.9) 10/07/22 03:44 Hgb 13.7 g/dL (12.0-15.0) D 10/07/22 03:44 Hct 41.5 % (36.0-45.0) 10/07/22 03:44 Plt Count 226 thou/uL (152-406) 10/07/22 03:44 PT 10.6 SECONDS (9.5-12.5) 10/05/22 08:55 INR 0.96 10/05/22 08:55 APTT 17.3 SECONDS (24.3-36.9) L 10/05/22 08:55 Sodium 137 mEq/L (136-145) 10/07/22 03:44 Potassium 3.7 mEq/L (3.5-5.1) 10/07/22 03:44 BUN 18 mg/dL (7-18) 10/07/22 03:44 Creatinine 0.71 mg/dL (0.55-1.02) 10/07/22 03:44 Glucose 93 mg/dL (74-106) 10/07/22 03:44 Phosphorus 3.5 mg/dL (2.5-4.9) 10/05/22 17:52 Magnesium 2.3 mg/dL (1.6-2.4) 10/07/22 03:44 Total Bilirubin 0.5 mg/dL (0.2-1.0) 10/07/22 03:44 AST 13 U/L (15-37) L 10/07/22 03:44 ALT 23 U/L (13-56) 10/07/22 03:44 Alkaline Phosphatase 98 U/L (45-117) 10/07/22 03:44 Triglycerides 101 mg/dL (<150) 10/05/22 17:52 Cholesterol 155 mg/dL (<200) 10/05/22 17:52 HDL Cholesterol 51 mg/dL (40-60) 10/05/22 17:52 Cholesterol/HDL Ratio 3.04 10/05/22 17:52 Home Medications: Aspirin Chewable [Aspirin Chewable*] 81 mg PO DAILY tab.chew 10/07/22 Atorvastatin Calcium [Lipitor] 40 mg PO BEDTIME 30 Days #30 tab 10/07/22 Clopidogrel Bisulfate [Plavix*] 75 mg PO DAILY 30 Days #30 tab 10/07/22 Folic Acid 1 mg PO DAILY 30 Days #30 tab 10/07/22 New Medications: Folic Acid 1 mg PO DAILY 30 Days #30 tab Atorvastatin Calcium [Lipitor] 40 mg PO BEDTIME 30 Days #30 tab Clopidogrel Bisulfate [Plavix*] 75 mg PO DAILY 30 Days #30 tab Physician Discharge Instructions: Patient presented to ED with dizziness and unsteady gait. She was found to have a left cerebellar stroke on MRI. Neurology was consulted. She was evaluated by physical therapy. CT head, MRA head/neck, carotid ultrasound, and echocardiogram were all unremarkable. She had improvement of her symptoms, but did still persist with some dizziness and unsteadiness of her gait. She did report feeling comfortable ambulating enough to safely go home. Her blood pressure was noted to be mildly elevated and improved to 140 systolic. Discussed allowing for some permissive hypertension immediately after stroke. She is to monitor blood pressure at home and follow-up with her primary care physician. If blood pressure remains elevated or increases, will eventually need to be started on medication. Dr. Goodson evaluated the patient, recommended aspirin, Plavix, folic acid, statin Discussed tobacco cessation. Follow-up PCP within 1 week Neurology in 1 month Followup: NONE,NONE [Primary Care Provider] - Time spent managing pt's care (in minutes): 45
[2022-10-07 14:22] VITALS: BP 145/81; TEMP 98.5
== END 2022-10-07 15:08 | disposition home or self-care (01) | DRG 66 ==
LOC: ER 07:54 → ERHOLD 15:11 → 2ND 16:00
PROVIDERS: ADMIT Internal Medicine; ATTEND Hospitalist
DX: I63.9 Cerebral infarction, unspecified (principal); R11.2 Nausea with vomiting, unspecified; R42 Dizziness and giddiness; R26.81 Unsteadiness on feet; R53.1 Weakness; R51.9 Headache, unspecified; D72.829 Elevated white blood cell count, unspecified; I07.1 Rheumatic tricuspid insufficiency; R03.0 Elevated blood-pressure reading, without diagnosis of hypertension; F17.210 Nicotine dependence, cigarettes, uncomplicated; E66.9 Obesity, unspecified; Z68.35 Body mass index [BMI] 35.0-35.9, adult; Z71.3 Dietary counseling and surveillance; Z71.82 Exercise counseling; Z88.0 Allergy status to penicillin; Z98.51 Tubal ligation status; Z28.310 Unvaccinated for COVID-19
CPT/HCPCS: 36415; 70450; 70544; 70549; 70551; 71045; 80048; 80053; 80061; 81001; 82947; 83036; 83735; 84100; 84439; 84443; 84484; 85025; 85610; 85730; 93005; 93306; 93880; 97116; 97161; 99285; A9577; J1650; J2405; J2550; J7030; J8597